=== PATIENT | male | born 1965 | race African-American/Black ===

== ENCOUNTER 2019-04-24 16:36 | Inpatient (IN) | payer MEDICARE, MEDICAID ==
[~2019-04-24] VITALS: Ht 172.7 cm; Wt 110.7 kg
[2019-04-24] MEDS ORDERED: METHYLPREDNISOLONE SOD SUCC 125 MG/2 ML VIAL IV STA (17:14)
[2019-04-24] MEDS ORDERED: IPRATROPIUM BROMIDE (0.02%) 0.5MG/2.5ML NEB HHN STA (17:14)
[2019-04-24] MEDS ORDERED: MAGNESIUM 2 G PREMIX 50 ML IV ONE (17:15)
[2019-04-24] MEDS: ALBUTEROL (0.083%) 2.5MG/3ML NEB HHN SCH ×2 (17:24→17:54)
[2019-04-24 17:50] LABS: CHLORIDE 107 mEq/L (98-107)
[2019-04-24 17:51] LABS: BASOPHILS % 0.3 % (0.0-2.0); EOSINOPHILS % 4.1 % (0.0-5.0); HEMATOCRIT. 37.4 % (42.0-52.0); LYMPHOCYTES % 35.5 % (20.0-50.0); MEAN CORPUSCULAR HEMOGLOBIN 29.8 pg (28.0-32.0); MEAN CORPUSCULAR VOLUME 86.1 fL (80.0-94.0); MEAN PLATELET VOLUME 8.2 fl (7.4-10.4); MONOCYTES % 10.8 % (2.0-8.0); NEUTROPHILS % 49.3 % (40.0-76.0); PLATELET 230 x1000/uL (130-400); RED BLOOD CELL COUNT 4.35 mill/uL (4.7-6.1); RED CELL DISTRIBUTION WIDTH 13.6 % (11.6-14.6)
[2019-04-24] MEDS ORDERED: ALBUTEROL (0.083%) 2.5MG/3ML NEB HHN ONE (20:30)
[2019-04-24] MEDS ORDERED: ACETAMINOPHEN 325MG TABLET PO ONE (21:30)
[2019-04-24] MEDS ORDERED: OXYCODONE HCL/ACETAMINOPHEN 5/325MG TABLET PO ONE (21:45)
[2019-04-24 23:00] VITALS: BP 162/99
[2019-04-24] MEDS ORDERED: LISI-604 PO (23:16)
[2019-04-24] MEDS ORDERED: ALBU18HF2 IH (23:16)
[2019-04-24] MEDS ORDERED: ALBU2.5V13 NEB (23:16)
[2019-04-24] MEDS ORDERED: CIPR500T25 PO (23:16)
[2019-04-24] MEDS ORDERED: TRAZ-213 PO (23:16)
[2019-04-24] MEDS ORDERED: FLUO15CR2 TP (23:16)
[2019-04-24] MEDS ORDERED: AMLO10TA80 PO (23:16)
[2019-04-24] MEDS ORDERED: CIPR500S3 PO (23:16)
[2019-04-25] MEDS ORDERED: HYDROCODONE/ACETAMINOPHEN 5/325MG TABLET PO PRN (01:15)
[2019-04-25] MEDS ORDERED: CLONIDINE 0.1MG TABLET PO PRN (01:15)
[2019-04-25] MEDS ORDERED: IPRATROPIUM/ALBUTEROL 0.5-3(2.5)MG/3ML NEB HHN PRN (01:15)
[2019-04-25] MEDS ORDERED: GUAIFENESIN 200MG/10ML SUGAR FREE UDC PO PRN ×2 (01:15→07:15)
[2019-04-25] MEDS ORDERED: MORPHINE SULFATE 2 MG/ML CPJ (NOT FOR IM USE) IV PRN (01:15)
[2019-04-25 02:00] VITALS: BP 148/85
[2019-04-25 04:00] VITALS: BP 165/91
[2019-04-25] MEDS: IPRATROPIUM/ALBUTEROL 0.5-3(2.5)MG/3ML NEB HHN SCH ×3 (04:29→12:00)
[2019-04-25 06:36] VITALS: BP 155/78
[2019-04-25 06:59] LABS: HEMATOCRIT. 37.5 % (42.0-52.0); HEMOGLOBIN. 12.7 g/dL (14.0-18.0); LYMPHOCYTES % 9.8 % (20.0-50.0); MEAN CORPUSCULAR HEMOGLOBIN 29.2 pg (28.0-32.0); MEAN CORPUSCULAR VOLUME 86.2 fL (80.0-94.0); MEAN PLATELET VOLUME 8.3 fl (7.4-10.4); MONOCYTES % 3.8 % (2.0-8.0); NEUTROPHILS % 86.4 % (40.0-76.0); PLATELET 237 x1000/uL (130-400); RED BLOOD CELL COUNT 4.35 mill/uL (4.7-6.1); RED CELL DISTRIBUTION WIDTH 13.6 % (11.6-14.6)
[2019-04-25 07:09] LABS: CHLORIDE 103 mEq/L (98-107)
[2019-04-25] MEDS ORDERED: MAGNESIUM/ALUMINUM HYDROXIDE/SIMETHICONE 30ML UDC PO PRN (07:15)
[2019-04-25] MEDS ORDERED: DOCUSATE SODIUM 100MG CAPSULE PO PRN (07:15)
[2019-04-25] MEDS ORDERED: ONDANSETRON HCL 4MG/2ML INJ IV PRN (07:15)
[2019-04-25] MEDS ORDERED: LORAZEPAM 2MG/ML CPJ IV PRN (07:15)
[2019-04-25] MEDS ORDERED: HYDRALAZINE 20MG/ML VIAL IV PRN (07:15)
[2019-04-25] MEDS ORDERED: ACETAMINOPHEN 325MG TABLET PO PRN (07:15)
[2019-04-25] MEDS ORDERED: NA PHOS,M-B/NA PHOS,DI-BA ENEMA 118ML PR PRN (07:15)
[2019-04-25] MEDS ORDERED: DIPHENHYDRAMINE 50MG/ML VIAL IV PRN (07:15)
[2019-04-25] MEDS ORDERED: ENOXAPARIN 30MG/0.3ML SYR SUBCUT SCH (09:00)
[2019-04-25] MEDS ORDERED: ENOXAPARIN 40MG/0.4ML SYR SUBCUT SCH (09:00)
[2019-04-25 12:00] VITALS: BP 150/97
[2019-04-25 13:38] VITALS: BP 140/62
[2019-04-25] MEDS ORDERED: SODIUM CHLORIDE 0.9% INJ 3ML FLUSH IVF SCH (14:00)
[2019-04-25] MEDS ORDERED: FOLIC ACID 1MG TABLET PO SCH (15:00)
[2019-04-25] MEDS ORDERED: MULTIVITAMINS,THER W-MINERALS TABLET PO SCH (15:00)
[2019-04-25] MEDS ORDERED: THIAMINE HCL 100MG TABLET PO SCH (15:00)
[2019-04-25] MEDS ORDERED: BUDESONIDE 0.5MG/2ML NEB HHN SCH (16:00)
== END 2019-04-25 14:54 | disposition home or self-care (01) | DRG 189 ==
LOC: ER 18:19 → 7WST 20:50 → EDBEDREQTM 20:55 → EDBEDREQ 20:55 → ENRESERV 21:49
PROVIDERS: ADMIT Internal Medicine; ATTEND Internal Medicine
DX: J96.00 Acute respiratory failure, unspecified whether with hypoxia or hypercapnia (principal); J45.901 Unspecified asthma with (acute) exacerbation; C81.90 Hodgkin lymphoma, unspecified, unspecified site; C61 Malignant neoplasm of prostate; G89.29 Other chronic pain; S46.911A Strain of unspecified muscle, fascia and tendon at shoulder and upper arm level, right arm, initial encounter; X58.XXXA Exposure to other specified factors, initial encounter; I10 Essential (primary) hypertension; M54.5 Low back pain; K21.9 Gastro-esophageal reflux disease without esophagitis; R26.9 Unspecified abnormalities of gait and mobility; Z79.2 Long term (current) use of antibiotics; Z79.899 Other long term (current) drug therapy; Z87.891 Personal history of nicotine dependence; Y93.89 Activity, other specified; Y92.89 Other specified places as the place of occurrence of the external cause; Y99.8 Other external cause status
CPT/HCPCS: 36415; 71045; 80048; 83880; 84484; 93005; 93970; 94640; 96365; 96375; 99285; J1650; J2270; J2930; J3475; J7611; J7620

== ENCOUNTER 2019-07-24 10:45 | Emergency (ER) | payer MEDICARE, MEDICAID ==
[~2019-07-24] VITALS: Ht 177.8 cm; Wt 111.0 kg
[~2019-07-24 10:45] MED LIST: ALBU18HF2 IH; ALBU2.5V13 NEB; AMLO10TA80 PO; CIPR500S3 PO; CIPR500T25 PO; FLUO15CR2 TP; LISI-604 PO; TRAZ-252 PO
[2019-07-24] MEDS ORDERED: LIDOCAINE 1%/EPI 1:100,000 10 ML VIAL IJ ONE (12:30)
[2019-07-24] MEDS ORDERED: MORPHINE SULFATE 10 MG/ML CPJ IM ONE (12:30)
[2019-07-24] MEDS ORDERED: ONDANSETRON 4MG ODT PO ONE (12:30)
[2019-07-24] MEDS ORDERED: LIDOCAINE HCL/EPINEPHRINE 1%-EPI 1:100,000 20 ML VIAL INFIL ONE (12:45)
[2019-07-24 13:53] VITALS: BP 171/87
== END 2019-07-24 13:56 | disposition home or self-care (01) ==
LOC: ER 10:52
DX: S01.01XA Laceration without foreign body of scalp, initial encounter (principal); I10 Essential (primary) hypertension; J45.909 Unspecified asthma, uncomplicated; E11.9 Type 2 diabetes mellitus without complications; Z85.46 Personal history of malignant neoplasm of prostate; Y00.XXXA Assault by blunt object, initial encounter; Y93.89 Activity, other specified; Y92.018 Other place in single-family (private) house as the place of occurrence of the external cause
CPT/HCPCS: 12002; 70450; 72125; 96372; 99284; J2270; J3490

== ENCOUNTER 2019-07-28 11:47 | Emergency (ER) | payer MEDICARE, MEDICAID ==
[~2019-07-28] VITALS: Ht 172.7 cm; Wt 109.0 kg
[2019-07-28] MEDS ORDERED: HYDROCODONE/ACETAMINOPHEN 5/325MG TABLET PO ONE (12:45)
[2019-07-28 13:25] VITALS: BP 160/89
== END 2019-07-28 13:25 | disposition home or self-care (01) ==
LOC: ER 11:47
DX: Z48.00 Encounter for change or removal of nonsurgical wound dressing (principal); S01.01XA Laceration without foreign body of scalp, initial encounter; Y04.2XXA Assault by strike against or bumped into by another person, initial encounter; Y93.89 Activity, other specified; Y92.89 Other specified places as the place of occurrence of the external cause
CPT/HCPCS: 99283

== ENCOUNTER 2019-07-31 07:27 | Emergency (ER) | payer MEDICARE, MEDICAID ==
[~2019-07-31] VITALS: Ht 172.7 cm; Wt 109.0 kg
[2019-07-31 07:40] VITALS: BP 178/120
[2019-07-31] MEDS ORDERED: IPRATROPIUM BROMIDE (0.02%) 0.5MG/2.5ML NEB HHN STA (08:34)
[2019-07-31] MEDS ORDERED: ALBUTEROL (0.083%) 2.5MG/3ML NEB HHN STA (08:34)
[2019-07-31] MEDS ORDERED: PREDNISONE 20MG TABLET PO STA (08:34)
== END 2019-07-31 09:34 | disposition home or self-care (01) ==
LOC: ER 07:27
DX: J45.901 Unspecified asthma with (acute) exacerbation (principal); Z48.02 Encounter for removal of sutures; I10 Essential (primary) hypertension; E11.9 Type 2 diabetes mellitus without complications; Z85.46 Personal history of malignant neoplasm of prostate
CPT/HCPCS: 94640; 99283; J7512

== ENCOUNTER 2019-08-31 04:40 | Emergency (ER) | payer MEDICARE, MEDICAID ==
[~2019-08-31] VITALS: Ht 172.7 cm; Wt 109.0 kg
[2019-08-31] MEDS ORDERED: METHYLPREDNISOLONE SOD SUCC 125 MG/2 ML VIAL IM STA (05:53)
[2019-08-31] MEDS ORDERED: IPRATROPIUM BROMIDE (0.02%) 0.5MG/2.5ML NEB HHN STA (05:53)
[2019-08-31] MEDS ORDERED: ALBUTEROL (0.083%) 2.5MG/3ML NEB HHN STA (05:53)
[2019-08-31 06:35] VITALS: BP 144/91
== END 2019-08-31 07:23 | disposition home or self-care (01) ==
LOC: ER 04:40
DX: J45.901 Unspecified asthma with (acute) exacerbation (principal); E11.9 Type 2 diabetes mellitus without complications; I10 Essential (primary) hypertension; Z79.899 Other long term (current) drug therapy
CPT/HCPCS: 94640; 96372; 99283; J2930

== ENCOUNTER 2019-11-08 05:41 | Emergency (ER) | payer MEDICARE, MEDICAID ==
[~2019-11-08] VITALS: Ht 177.8 cm; Wt 111.0 kg
[2019-11-08] MEDS ORDERED: ALBUTEROL (0.083%) 2.5MG/3ML NEB HHN STA (06:34)
[2019-11-08] MEDS ORDERED: PREDNISONE 20MG TABLET PO STA (06:34)
[2019-11-08] MEDS ORDERED: IPRATROPIUM BROMIDE (0.02%) 0.5MG/2.5ML NEB HHN STA (06:34)
[2019-11-08 08:35] VITALS: BP 142/98
== END 2019-11-08 08:35 | disposition home or self-care (01) ==
LOC: ER 05:41
DX: J45.901 Unspecified asthma with (acute) exacerbation (principal); I10 Essential (primary) hypertension; E11.9 Type 2 diabetes mellitus without complications; Z85.9 Personal history of malignant neoplasm, unspecified
CPT/HCPCS: 94644; 99285; J7512